=== PATIENT | male | born 1945 | race Caucasian/White ===

== ENCOUNTER 2016-05-12 15:11 | Observation (INO) | payer MEDICARE, OTHER ==
[~2016-05-12] VITALS: Ht 167.6 cm; Wt 129.0 kg
[~2016-05-12 15:11] MED LIST: ASPI81TA82 PO; ATEN-104 PO; FISH1000 PO; FLUO60TA PO; GLUCTAB PO; HYDR-2768 PO; HYDR-3533 PO; LASI20TA PO; NAPR500 PO; ZOCO40TA PO
[2016-05-12 15:24] VITALS: BP 149/71; PULSE 64; RESP 16; TEMP 98.7; O2SAT 96
[2016-05-12] MEDS ORDERED: METF1000 PO (15:34)
[2016-05-12] MEDS ORDERED: ASPI1TAB69 PO (15:34)
[2016-05-12] MEDS ORDERED: ATEN100T7 PO (15:34)
[2016-05-12] MEDS ORDERED: SIMV40TA PO (15:34)
[2016-05-12] MEDS ORDERED: FLUO40CA PO (15:34)
--- NOTE | 2016-05-12 15:41 | PD ---
HPI Chief Complaint: Chest Pain Time Seen by Provider: 15:26 Travel History International Travel<30 days: No Contact w/Intl Traveler<30days: No Traveled to known affect area: No History of Present Illness HPI This patient complains of chest tightness. Duration 2 hours. Severity is moderate. He was resting when it occurred. Located in the center sternum. No alleviating factors. He has taken multiple aspirin today. History of cardiac stent but last cardiac testing was 5 years ago. He had developed some belching prior to the discomfort and he thought it might be heartburn. He took a couple of Tums without relief. PFSH Past Medical History Blood Disorders: No Cancer: No Cardiovascular Problems: Yes (STENT 10 YEARS AGO) High Cholesterol: Yes Chemotherapy: No Coronary Artery Disease: Yes Diabetes: Yes Patient Takes Glucophage: Yes Diminished Hearing: No Gastrointestinal Disorders: No Genitourinary: No Hypertension: Yes Musculoskeletal: No Neurologic: No Psychiatric: No Reproductive: No Respiratory: Yes Radiation Therapy: No Sleep Apnea: Yes PNEUMOCCOCAL Vaccine (Year): 2 Past Surgical History Abdominal Surgery: No AICD: No Arteriovenous Shunt: No Cardiac Surgery: Yes (Stent placement) Ear Surgery: No Endocrine Surgery: No Eye Surgery: No Genitourinary Surgery: No Gynecologic Surgery: No Insulin Pump: No Joint Replacement: No Neurologic Surgery: No Oral Surgery: No Pacemaker: No Thoracic Surgery: No Other Surgery: Yes (Prashanth Wrists-Carpal and Right wrist repair.) Social History Alcohol Use: No Tobacco Use: No Substance Use: No Allergies-Medications (Allergen,Severity, Reaction): Coded Allergies: No Known Allergies (Verified , 05/12/16) Reported Meds & Prescriptions Reported Meds & Active Scripts Active Reported Fluoxetine (Fluoxetine HCl) 40 Mg Cap 40 Cap PO DAILY Aspirin 81 Mg Tabdr 81 Mg PO BID Simvastatin 40 Mg Tab 40 Mg PO HS Metformin (Metformin HCl) 1,000 Mg Tab 1,000 Mg PO BIDPC With meals Atenolol-Chlorthalidone 100-25 Mg Tab 1 Tab PO DAILY Review of Systems General / Constitutional: No: Fever Eyes: No: Visual changes HENT: No: Headaches Cardiovascular: Positive: Chest Pain or Discomfort Respiratory: No: Shortness of Breath Gastrointestinal: No: Abdominal Pain Genitourinary: No: Dysuria Musculoskeletal: No: Pain Skin: No Rash Neurologic: No: Weakness Psychiatric: No: Depression Endocrine: No: Polydipsia Hematologic/Lymphatic: No: Easy Bruising Physical Exam Narrative GENERAL: Well-nourished, well-developed patient in no apparent distress. SKIN: Warm and dry. HEAD: Atraumatic. Normocephalic. EYES: Pupils equal and round. No scleral icterus. No injection or drainage. ENT: No nasal bleeding or discharge. Mucous membranes pink and moist. NECK: Trachea midline. No JVD. CARDIOVASCULAR: Regular rate and rhythm. No murmur appreciated. RESPIRATORY: No accessory muscle use. Clear to auscultation. Breath sounds equal bilaterally. GASTROINTESTINAL: Abdomen soft, non-tender, nondistended. Hepatic and splenic margins not palpable. MUSCULOSKELETAL: No obvious deformities. No clubbing. No cyanosis. Trace symmetric lower extremity edema. NEUROLOGICAL: Awake and alert. No obvious cranial nerve deficits. Motor grossly within normal limits. Normal speech. PSYCHIATRIC: Appropriate mood and affect; insight and judgment normal. Data Data Last Documented VS Vital Signs Date Time Temp Pulse Resp B/P Pulse Ox O2 Delivery O2 Flow Rate FiO2 05/12/16 15:55 97 Room Air 05/12/16 15:24 98.7 64 16 149/71 Orders Electrocardiogram (05/12/16 15:36) Basic Metabolic Panel (Bmp) (05/12/16 15:36) Ckmb (Isoenzyme) Profile (05/12/16 15:36) Complete Blood Count With Diff (05/12/16 15:36) Prothrombin Time / Inr (Pt) (05/12/16 15:36) Act Partial Throm Time (Ptt) (05/12/16 15:36) Troponin I (05/12/16 15:36) Chest, Single Ap (05/12/16 15:36) Ecg Monitoring (05/12/16 15:36) Iv Access Insert/Monitor (05/12/16 15:36) Oximetry (05/12/16 15:36) Sodium Chloride 0.9% Flush (Ns Flush) (05/12/16 15:45) Labs Laboratory Tests Test 05/12/16 15:54 White Blood Count 7.9 TH/MM3 Red Blood Count 4.70 MIL/MM3 Hemoglobin 14.6 GM/DL Hematocrit 43.0 % Mean Corpuscular Volume 91.3 FL Mean Corpuscular Hemoglobin 31.0 PG Mean Corpuscular Hemoglobin 33.9 % Concent Red Cell Distribution Width 13.2 % Platelet Count 212 TH/MM3 Mean Platelet Volume 9.1 FL Neutrophils (%) (Auto) 59.9 % Lymphocytes (%) (Auto) 24.4 % Monocytes (%) (Auto) 12.5 % Eosinophils (%) (Auto) 2.3 % Basophils (%) (Auto) 0.9 % Neutrophils # (Auto) 4.7 TH/MM3 Lymphocytes # (Auto) 1.9 TH/MM3 Monocytes # (Auto) 1.0 TH/MM3 Eosinophils # (Auto) 0.2 TH/MM3 Basophils # (Auto) 0.1 TH/MM3 CBC Comment DIFF FINAL Differential Comment Prothrombin Time 10.7 SEC Prothromb Time International 1.0 RATIO Ratio Activated Partial 25.9 SEC Thromboplast Time Sodium Level 142 MEQ/L Potassium Level 3.6 MEQ/L Chloride Level 105 MEQ/L Carbon Dioxide Level 26.7 MEQ/L Anion Gap 10 MEQ/L Blood Urea Nitrogen 18 MG/DL Creatinine 0.80 MG/DL Estimat Glomerular Filtration 96 ML/MIN Rate Random Glucose 96 MG/DL Calcium Level 8.5 MG/DL Total Creatine Kinase 92 U/L Troponin I LESS THAN 0.02 NG/ML MDM Medical Decision Making Medical Screen Exam Complete: Yes Emergency Medical Condition: Yes Medical Record Reviewed: Yes Differential Diagnosis Differential diagnosis includes SD, angina, pericarditis, pleurisy, GERD, anxiety. Narrative Course I have reviewed the patient's electronic medical record. Was seen here 2 years ago for facial/jaw pain IV placed I reviewed the EKG which shows sinus rhythm and no ST elevation or ectopy I reviewed the chest x-ray which is normal Extended cardiac monitoring shows sinus rhythm without ectopy CBC is normal Metabolic profile is normal CK is normal Troponin is normal Coagulation studies are normal Workup is negative. Patient is pain-free. He does have known disease and atypical pain. I am recommending 23 hour observation on telemetry in the chest pain center to rule out cardiac cause of his symptoms Hospitalist has been paged to discuss Diagnosis Primary Impression: Chest pain in adult Admitting Information Admitting Physician Requests: Observation Patrick Wisdom MD May 12, 2016 15:41
[2016-05-12] MEDS ORDERED: SODIUM CHLORIDE 0.9% FLUSH 5 ML FLUSH IVF PRN (15:45)
[2016-05-12 15:55] VITALS: O2SAT 97
[2016-05-12 16:00] LABS: AUTOMATED NEUTROPHIL # 4.7 TH/MM3 (1.8-7.7); BASOPHIL # 0.1 TH/MM3 (0-0.2); BASOPHIL % 0.9 % (0.0-2.0); EOSINOPHIL # 0.2 TH/MM3 (0-0.4); EOSINOPHIL % 2.3 % (0.0-4.0); HEMO FLAGS DIFF FINAL; LYMPH % 24.4 % (9.0-44.0); LYMPHOCYTE # 1.9 TH/MM3 (1.0-4.8); MEAN CELL VOLUME 91.3 FL (80.0-100.0); MEAN CORPUSCULAR HGB CONC 33.9 % (32.0-36.0); MONO % 12.5 % (0.0-8.0); NEUT % 59.9 % (16.0-70.0); PLATELET COUNT 212 TH/MM3 (150-450); RED CELL DISTRIBUTION WIDTH 13.2 % (11.6-17.2); WHITE BLOOD COUNT 7.9 TH/MM3 (4.0-11.0)
[2016-05-12 16:07] LABS: CHLORIDE 105 MEQ/L (98-107); POTASSIUM 3.6 MEQ/L (3.5-5.1); SODIUM (NA) 142 MEQ/L (136-145)
--- NOTE | 2016-05-12 16:09 | RADHPO ---
EXAM DATE/TIME: 05/12/2016 15:59 [facility] COMPARISON: No previous studies available for comparison. INDICATIONS : Chest discomfort with nausea. MEDICAL HISTORY : Cerebrovascular disease. SURGICAL HISTORY : cardiac stent ENCOUNTER: Initial ACUITY: 1 day PAIN SCORE: 5/10 LOCATION: Bilateral upper chest FINDINGS: A single view of the chest demonstrates hypoinflation with minimal atelectatic changes or scarring in the left lingula. Accounting for low lung volumes, heart size is normal. Degenerative spurring of th e dorsal spine. CONCLUSION: 1. Hypoinflation with left lingular atelectasis/scarring. 2. Accounting for low lung volumes, heart size is normal. Chuy Garcia MD on May 12, 2016 at 16:06 Board Certified Radiologist. This report was verified electronically.
[2016-05-12 16:10] LABS: ANION GAP 10 MEQ/L (5-15); BICARBONATE 26.7 MEQ/L (21.0-32.0); BLOOD UREA NITROGEN 18 MG/DL (7-18)
[2016-05-12 16:11] LABS: APTT (PATIENT) 25.9 SEC (24.3-30.1); PROTHROMBIN TIME - PATIENT 10.7 SEC (9.8-11.6)
[2016-05-12 16:13] LABS: GLOMERULAR FILTRATION RATE 96 ML/MIN (>89)
[2016-05-12 16:19] LABS: CREATINE KINASE 92 U/L (39-308)
[2016-05-12 17:33] VITALS: BP 131/66; PULSE 56; RESP 15; O2SAT 94
[2016-05-12] MEDS ORDERED: ACETAMINOPHEN/HYDROcodone 325 MG/7.5 MG TAB PO PRN (18:30)
[2016-05-12] MEDS ORDERED: MORPHINE SULFATE 4 MG/ML INJ IV PRN (18:30)
[2016-05-12] MEDS ORDERED: ASPIRIN 81 MG CHEW TAB PO ONE (18:30)
[2016-05-12] MEDS ORDERED: ONDANSETRON HCL 4 MG/2 ML VIAL IV PRN (18:30)
[2016-05-12] MEDS ORDERED: NITROGLYCERIN 0.4 MG SL 25 TABS/BTL SL PRN (18:30)
[2016-05-12 20:00] VITALS: BP 121/67; PULSE 53; RESP 18; TEMP 97.3; O2SAT 96
[2016-05-12 20:11] VITALS: PULSE 57
[2016-05-12 20:25] VITALS: O2SAT 96
[2016-05-12] MEDS ORDERED: DEXTROSE 50% IN WATER 50 ML VIAL(D50) IV PUSH PRN (20:30)
[2016-05-12] MEDS ORDERED: GLUCAGON 1 MG/ML VIAL OTHER PRN (20:30)
[2016-05-12 20:58] LABS: CREATINE KINASE 88 U/L (39-308)
[2016-05-12 22:34] LABS: CREATINE KINASE 82 U/L (39-308)
[2016-05-12] MEDS: HEPARIN SODIUM - SQ 10,000 UNITS/ML VIAL SQ SCH (23:13)
[2016-05-13] VITALS: BP 130/70; PULSE 53; RESP 18; TEMP 96.4; O2SAT 96
[2016-05-13] MEDS ORDERED: DEXT 5%-NACL 0.45% 1000 ML INJ 1,000 ML IV SCH
[2016-05-13 04:00] VITALS: BP 120/71; PULSE 60; RESP 18; TEMP 98.4; O2SAT 96
[2016-05-13] MEDS: HEPARIN SODIUM - SQ 10,000 UNITS/ML VIAL SQ SCH ×2 (05:53→14:00)
[2016-05-13 08:00] VITALS: BP 147/72; PULSE 56; RESP 20; TEMP 97.6; O2SAT 94
[2016-05-13] MEDS ORDERED: ASPIRIN EC 81 MG TABEC PO SCH (09:00)
[2016-05-13] MEDS ORDERED: FLUoxetine HCL 20 MG CAP PO SCH (09:00)
--- NOTE | 2016-05-13 10:20 | EKG ---
Date Performed: 05/12/2016 Time Performed: 15:26:04 PTAGE: 71 years EKG: Sinus bradycardia with 1st degree A-V block Leftward axis Inferior infarct - age undetermin ed Abnormal ECG PREVIOUS TRACING : 05/13/2007 01.42 DOCTOR: Kwabena Villagomez Interpretating Date/Time 05/13/2016 10:17:10
--- NOTE | 2016-05-13 10:25 | HHI.HP ---
[facility]Staff Admission Diagnosis chest pain Diagnoses: Chief Complaint: Chest pain Travel History International Travel<30 Days: No Contact w/Intl Traveler <30 Da: No Traveled to Known Affected Are: No History of Present Illness 8 years old male with history of cardiac disease status post stenting 10 years ago diabetes mellitus hypertension hyperlipidemia, came yesterday with a complaint of retrosternal chest anal he attributed it to eating fatty food the night before and the morning of that day. Stated the pain was about 3-4 out of 10 that was constant resolved when he gets to the hospital, patient took aspirin but not nitroglycerin. No alleviating factor, as mentioned above eating food triggered the pain. Patient stated he had a stress test before but it was many years ago. He quit smoking 35 years ago. He also reported some blenching, and burping Review of Systems All 10 systems reviewed and was positive for what is mentioned in history of present illness otherwise negative Past Family Social History Past Medical History As in history of present illness Past Surgical History Bilateral knee replacement, shoulder surgery Allergies: Coded Allergies: No Known Allergies (Verified , 05/12/16) Family History Heart disease in the parents Social History Quit smoking 35 years ago no alcohol or illicit drug abuse Physical Exam Vital Signs Vital Signs Date Time Temp Pulse Resp B/P Pulse Ox O2 Delivery O2 Flow Rate FiO2 05/13/16 08:00 97.6 56 20 147/72 94 05/13/16 04:00 98.4 60 18 120/71 96 05/13/16 00:00 96.4 53 18 130/70 96 05/12/16 20:25 96 21 05/12/16 20:11 57 05/12/16 20:00 97.3 53 18 121/67 96 05/12/16 17:33 56 15 131/66 94 Room Air 05/12/16 15:55 97 Room Air 05/12/16 15:24 98.7 64 16 149/71 96 Physical Exam GENERAL: This is a well-nourished, morbidly obese well-developed patient, in no apparent distress. SKIN: No rashes, warm and dry HEAD: Atraumatic. Normocephalic. EYES: Pupils equal round and reactive. Extraocular motions intact. No scleral icterus. ENT: Nose without bleeding, or drainage, Airway patent. NECK: Trachea midline. Supple CARDIOVASCULAR: Regular rate and rhythm without murmurs, gallops, or rubs. RESPIRATORY: Fair air entry bilaterally. No wheezes, rales, or rhonchi. GASTROINTESTINAL: Abdomen soft, non-tender, nondistended. Positive bowel sounds MUSCULOSKELETAL: Extremities without clubbing, cyanosis, or edema. Pedal pulses appreciated NEUROLOGICAL: Awake and alert. Moves all extremity. Normal speech.no focal neurological deficit Laboratory Laboratory Tests Test 05/12/16 05/12/16 05/12/16 15:54 20:04 21:49 White Blood Count 7.9 Red Blood Count 4.70 Hemoglobin 14.6 Hematocrit 43.0 Mean Corpuscular Volume 91.3 Mean Corpuscular Hemoglobin 31.0 Mean Corpuscular Hemoglobin 33.9 Concent Red Cell Distribution Width 13.2 Platelet Count 212 Mean Platelet Volume 9.1 Neutrophils (%) (Auto) 59.9 Lymphocytes (%) (Auto) 24.4 Monocytes (%) (Auto) 12.5 Eosinophils (%) (Auto) 2.3 Basophils (%) (Auto) 0.9 Neutrophils # (Auto) 4.7 Lymphocytes # (Auto) 1.9 Monocytes # (Auto) 1.0 Eosinophils # (Auto) 0.2 Basophils # (Auto) 0.1 CBC Comment DIFF FINAL Differential Comment Prothrombin Time 10.7 Prothromb Time International 1.0 Ratio Activated Partial 25.9 Thromboplast Time Sodium Level 142 Potassium Level 3.6 Chloride Level 105 Carbon Dioxide Level 26.7 Anion Gap 10 Blood Urea Nitrogen 18 Creatinine 0.80 Estimat Glomerular Filtration 96 Rate Random Glucose 96 Calcium Level 8.5 Total Creatine Kinase 92 88 82 Troponin I LESS THAN 0.02 LESS THAN 0.02 LESS THAN 0.02 Result Diagram: 05/12/16 1554 05/12/16 1554 Imaging Last Impressions Chest X-Ray 05/12/16 1536 Signed Impressions: Service Date/Time: Thursday, May 12, 2016 15:59 - CONCLUSION: 1. Hypoinflation with left lingular atelectasis/scarring. 2. Accounting for low lung volumes, heart size is normal. Chuy Garcia MD EKG EKG sinus bradycardia with first-degree AV block heart rate 55 axis deviation age undetermined inferior infarct Assessment and Plan Assessment and Plan 71 years old male with history of coronary artery disease hypertension hyperlipidemia came with Retrosternal chest pain rule out acute coronary syndrome Admit to inpatient, aspirin, morphine, oxygen, nitroglycerin EKG reviewed by me as above Cycle cardiac enzyme within normal limits Will do stress test today , if negative patient to be discharged Patient wants to attend a democrat tonight Diabetes mellitus: On metformin, will hold, Accu-Chek with sliding scale as needed Hypertension, hyperlipidemia, history of CAD : Continue home meds rec DVT prophylaxis with SCD and heparin Discussed Condition With Patient in ED physician Matteo Joyner MD May 13, 2016 10:25
[2016-05-13] MEDS ORDERED: INSULIN ASPART SUPPLEMENTAL SCALE SQ SCH (11:00)
--- NOTE | 2016-05-13 11:17 | EKG ---
Date Performed: 05/13/2016 Time Performed: 08:14:20 PTAGE: 71 years EKG: Sinus bradycardia with 1st degree A-V block. Leftward axis Inferior infarct - age undetermi isabela Abnormal ECG PREVIOUS TRACING : 05/12/2016 15.26 DOCTOR: Kwabena Villagomez Interpretating Date/Time 05/13/2016 11:14:53
[2016-05-13 12:00] VITALS: BP 127/77; PULSE 55; RESP 18; TEMP 97.7; O2SAT 95
[2016-05-13] MEDS ORDERED: REGADENOSON INJ 0.4 MG/5 ML SYR IV ONE (12:22)
--- NOTE | 2016-05-13 14:32 | RADHPO ---
EXAM DATE/TIME: 05/13/2016 12:31 [facility] COMPARISON: No previous studies available for comparison. INDICATIONS : Substernal chest pain. Angina. DOSE: 35 mCi Tc99m Myoview at stress. 11 mCi Tc99m Myoview at rest. 0.4 mg Lexiscan STRESS SYMPTOMS: Headache. EJECTION FRACTION: 51% MEDICAL HISTORY : Hypertension. Diabetes mellitus type 2. SURGICAL HISTORY : Coronary artery stent. Carpal tunnel. ENCOUNTER: Initial ACUITY: 1 day PAIN SCALE: 4/10 LOCATION: Substernal chest TECHNIQUE: The patient underwent pharmacologic stress with infusion of prescribed dose. Continuous ECG tracing was monitored during stress. Gated SPECT imaging was performed after stress and conventional SPECT i maging was performed at rest. The examination was performed on a SPECT/CT scanner, both attenuation and non-corrected datasets were reviewed. FINDINGS: The gated cine-loop images demonstrate no focal wall motion abnormality The left ventricular ejecti on fraction is calculated at 51%. The cardiac SPECT stress and rest images demonstrate a fixed defect involving the lateral wall sugges ting LCX infarct. Clinical correlation is recommended. No reversible defects are noted to suggest i schemia. CONCLUSION: 1. Fixed defect involving the lateral wall suggesting an LCX infarct. Clinical correlation is recom mended. 2. No reversible defects to suggest ischemia. 3. No focal wall motion abnormality. Left ventricular ejection fraction is calculated at 51%. RISK CATEGORY: Low risk (less than 1% annual mortality rate). Israel Cerna MD on May 13, 2016 at 14:09 Board Certified Radiologist. This report was verified electronically.
--- NOTE | 2016-05-13 14:57 | HHI.DCPOC ---
Discharge Care Plan Diagnosis: (1) Chest pain in adult Your Health Problems Are: Chest Pain Goals to Promote Your Health * To prevent worsening of your condition and complications * To maintain your health at the optimal level Directions to Meet Your Goals Take your medications as prescribed Follow your dietary instruction Follow activity as directed Keep your appointments as scheduled Take your immunizations and boosters as scheduled If your symptoms worsen call your PCP, if no PCP go to Urgent Care Center or Emergency Room Smoking is Dangerous to Your Health. Avoid second hand smoke Call the 24-hour hour crisis hotline for domestic abuse at Dinah Hartman May 13, 2016 14:57
[2016-05-13 15:20] VITALS: BP 139/78; PULSE 60; RESP 18; O2SAT 96
--- NOTE | 2016-05-13 15:49 | HHI.PR ---
Addendum to Inpatient Note Additional Information Nuclear stress test came back showing fixed defect in the lateral wall but no reversible defect suggesting ischemia no focal wall motion abnormality LVEF 51% She will be discharged and follow up with his advertising vice president Discharge patient to home Condition on discharge: Improved Healthy heart Diet as tolerated Ad Amanda activity Rx written: See med rec Follow-up with primary care physician and cardiology in 3-5 days Matteo Joyner MD May 13, 2016 15:49
--- NOTE | 2016-05-13 16:57 | TR ---
Date Performed: 05/13/2016 Time Performed: 12:33:38 DOCTOR: Nita Sanchez DRUG LIST: CLINICAL HISTORY: CHEST PAIN REASON FOR TEST: Chest pain REASON FOR ENDING: OBSERVATION: CONCLUSION: Lexiscan stress test was performed under standard four minute protocol. Radionuclid e was injected one minute prior to ending the test. No electrocardiographic abormalities were present to suggest ischemia. Nuclear imaging and interpretation are pending. COMMENTS:
[2016-05-13] MEDS ORDERED: PRAVASTATIN SOD 80 MG TAB PO SCH (21:00)
== END 2016-05-13 15:30 | disposition home or self-care (01) ==
LOC: PHED 15:11 → PHEDA 17:14 → PH3A 18:54
PROVIDERS: ADMIT Hospitalist; ATTEND Hospitalist
DX: R07.9 Chest pain, unspecified (principal); Z95.5 Presence of coronary angioplasty implant and graft; E78.00 Pure hypercholesterolemia, unspecified; I25.10 Atherosclerotic heart disease of native coronary artery without angina pectoris; E11.9 Type 2 diabetes mellitus without complications; I10 Essential (primary) hypertension; G47.30 Sleep apnea, unspecified; Z79.899 Other long term (current) drug therapy; Z79.84 Long term (current) use of oral hypoglycemic drugs; J98.11 Atelectasis; I44.0 Atrioventricular block, first degree
CPT/HCPCS: 71010; 78452; 80048; 82550; 82948; 84484; 85025; 85610; 85730; 93005; 93017; 99285; A9502; G0378; J1644; J2785

== ENCOUNTER 2017-05-03 17:55 | Emergency (ER) | payer MEDICARE, OTHER ==
[~2017-05-03] VITALS: Ht 182.9 cm; Wt 126.0 kg
[~2017-05-03 17:55] MED LIST changes: +ASPI1TAB69 PO; -ASPI81TA82 PO; -ATEN-104 PO; +ATEN100T7 PO; -FISH1000 PO; +FLUO40CA PO; -FLUO60TA PO; -GLUCTAB PO; -HYDR-2768 PO; -HYDR-3533 PO; -LASI20TA PO; +METF1000 PO; -NAPR500 PO; +SIMV40TA PO; -ZOCO40TA PO
[2017-05-03 17:57] VITALS: BP 154/72; PULSE 65; RESP 18; TEMP 98.9; O2SAT 95
[2017-05-03] MEDS ORDERED: METF500T PO (18:17)
[2017-05-03] MEDS ORDERED: ASPI-516 CHEW (18:17)
--- NOTE | 2017-05-03 18:37 | PD ---
HPI Chief Complaint: Eye Problems/Injury Time Seen by Provider: 18:24 Travel History International Travel<30 days: No Contact w/Intl Traveler<30days: No Traveled to known affect area: No History of Present Illness HPI Patient is a 72-year-old male presented to the emergency room for evaluation of floaters. Patient states he started 2:30 this afternoon in his right eye. He notices a white spot floating across his eye. He denies any headache, nausea, vomiting, eye pain or pressure. Patient states that on April 13 he sustained a small right orbital fracture after a mechanical fall on ice in [place]. He states that he was advised by his doctor that a retinal detachment was possible secondary to this injury. Patient denies any new injury or trauma. Symptom onset was sudden, symptom severity is mild. Patient denies any vision loss or vision changes. PFSH Past Medical History Cancer: Yes (SQUAMOUS CELL REMOVED) High Cholesterol: Yes Coronary Artery Disease: Yes Diabetes: Yes Patient Takes Glucophage: Yes (METFORMIN) Endocrine: Yes Hypertension: Yes Respiratory: Yes Sleep Apnea: Yes (CPAP) PNEUMOCCOCAL Vaccine (Year): 2 Past Surgical History Cardiac Surgery: Yes (Stent placement) Other Surgery: Yes (Prashanth Wrists-Carpal and Right wrist repair.) Social History Alcohol Use: No Tobacco Use: No Substance Use: No Allergies-Medications (Allergen,Severity, Reaction): Coded Allergies: No Known Allergies (Verified Adverse Reaction, Unknown, 05/03/17) Reported Meds & Prescriptions Reported Meds & Active Scripts Active Reported Aspirin 81 Mg Chew 81 Mg CHEW DAILY Metformin (Metformin HCl) 500 Mg Tab 500 Mg PO DAILY With a meal Fluoxetine (Fluoxetine HCl) 40 Mg Cap 40 Cap PO DAILY Simvastatin 40 Mg Tab 40 Mg PO HS Metformin (Metformin HCl) 1,000 Mg Tab 1,000 Mg PO BIDPC With meals Atenolol-Chlorthalidone 100-25 Mg Tab 1 Tab PO DAILY Review of Systems Except as stated in HPI: all other systems reviewed are Neg Eyes: Positive: Other (Floaters) Physical Exam Narrative GENERAL: Well-developed, well-nourished, alert elderly gentleman. Resting in no acute distress. SKIN: Warm and dry. HEAD: Normocephalic. EYES: No scleral icterus. No injection or drainage. Extraocular movements are intact. No visual field deficits noted on exam. Vision is 20/20 bilaterally with corrective lenses on. NECK: Supple, trachea midline. No JVD or lymphadenopathy. CARDIOVASCULAR: Regular rate and rhythm without murmurs, gallops, or rubs. RESPIRATORY: Breath sounds equal bilaterally. No accessory muscle use. GASTROINTESTINAL: Abdomen soft, non-tender, nondistended. MUSCULOSKELETAL: No cyanosis, or edema. BACK: Nontender without obvious deformity. No CVA tenderness. Data Data Last Documented VS Vital Signs Date Time Temp Pulse Resp B/P (MAP) Pulse Ox O2 Delivery O2 Flow Rate FiO2 05/03/17 17:57 98.9 65 18 154/72 (99) 95 Orders Orders Ed Discharge Order (05/03/17 18:37) [facility] Medical Decision Making Medical Screen Exam Complete: Yes Emergency Medical Condition: Yes Interpretation(s) Vital Signs Date Time Temp Pulse Resp B/P (MAP) Pulse Ox O2 Delivery O2 Flow Rate FiO2 05/03/17 17:57 98.9 65 18 154/72 (99) 95 Differential Diagnosis Retinal detachment versus vitreous hemorrhage versus other Narrative Course Patient is a well-appearing 72-year-old male presenting to the emergency room for evaluation of floaters. Patient's vital signs are stable. There are no visual field deficits and with corrective lenses patient has 20/20 vision. Discussed with my attending physician. Patient will be referred to Dr. Hood Garcia in the morning. He was given verbal and written instructions on how to schedule appointment and where her office was located. He was advised to return to emergency department immediately for any new or worsening symptoms. Patient and verbalized understanding of these instructions. Patient stable for discharge. Diagnosis Primary Impression: Floaters in visual field Qualified Codes: H43.391 - Other vitreous opacities, right eye Referrals: Beth Garcia MD 1 day Call the office first thing in the morning to schedule an appointment. Notify them that you are in the emergency department and need to be seen for possible retinal detachment. Additional Instructions: Follow-up with Dr. Garcia in the morning, call her office to schedule an appointment Return to emergency department for any new or worsening symptoms Med/Other Pt SpecificInfo: No Change to Meds Disposition: 01 DISCHARGE HOME Condition: Stable Deisi Walsh Kala MCKEON May 03, 2017 18:37
--- NOTE | 2017-05-03 18:47 | PD ---
Physical Exam Date Seen by Provider: May 03, 2017 Narrative Seeing floaters Data Data Last Documented VS Vital Signs Date Time Temp Pulse Resp B/P (MAP) Pulse Ox O2 Delivery O2 Flow Rate FiO2 05/03/17 17:57 98.9 65 18 154/72 (99) 95 Orders Orders Ed Discharge Order (05/03/17 18:37) MDM Supervised Visit with MAGY: Yes Narrative Course I, Dr. Mcintyre, have reviewed the advance practice practitioner's documentation and am in agreement, met with the patient face to face, made the diagnosis, and the medical decision making was done by me. *My assessment and Findings: Patient's visual acuity is 20/20 bilaterally. I have discussed the case with Deisi Mcbride NP and have suggested that she send the patient for urgent outpatient referral to ophthalmology. Please see Deisi Mcbride NP's note for results of laboratory and radiographic evaluation, ED course, final diagnosis and disposition Diagnosis Primary Impression: Floaters in visual field Qualified Codes: H43.391 - Other vitreous opacities, right eye Referrals: Beth Garcia MD 1 day Call the office first thing in the morning to schedule an appointment. Notify them that you are in the emergency department and need to be seen for possible retinal detachment. Additional Instruction: Follow-up with Dr. Garcia in the morning, call her office to schedule an appointment Return to emergency department for any new or worsening symptoms Disposition: 01 DISCHARGE HOME Condition: Stable Maddy Marie MD May 03, 2017 18:47
== END 2017-05-03 19:05 | disposition home or self-care (01) ==
LOC: NEPC 17:55
DX: H43.391 Other vitreous opacities, right eye (principal); E11.9 Type 2 diabetes mellitus without complications; E78.00 Pure hypercholesterolemia, unspecified; I10 Essential (primary) hypertension; Z79.84 Long term (current) use of oral hypoglycemic drugs
CPT/HCPCS: 99282